=== PATIENT | female | born 1940 ===

== ENCOUNTER 2016-11-06 17:45 | Emergency (ER) | payer MEDICARE, BC ==
[2016-11-06] MEDS ORDERED: oxyCODONE 5 MG Tab ONE (18:10)
[2016-11-06] MEDS ORDERED: Ondansetron 4 MG Tab.DIS ONE ×3 (19:10→19:11)
[2016-11-06] MEDS ORDERED: Acetaminophen/HYDROcodone 325-5 MG Tab ONE (19:10)
--- NOTE | 2016-11-07 11:03 | EDM.PDOC ---
ED HPI GENERAL MEDICAL PROBLEM - General Chief Complaint: General Stated Complaint: FELL AT NOON TODAY - RIGHT KNEE SWELL AND PAIN Time Seen by Provider: 11/06/16 17:58 Source of Information: Reports: Patient, Family History Limitations: Reports: No Limitations - History of Present Illness INITIAL COMMENTS - FREE TEXT/NARRATIVE: This is a 76yo F with extreme pain of the right knee after falling in a boat. Patient states she hit her head as well and is on coumadin. Patient denies any loss of consciousness but has a headache and severe right knee pain. Patient does have some tenderness in other parts of the body from the fall but denies any of them noteworthy. Onset: Sudden Location: Reports: Head, Face, Lower Extremity, Right Severity: Severe Improves with: Reports: None Worsens with: Reports: Movement Associated Symptoms: Reports: No Other Symptoms - Related Data Allergies Allergy/AdvReac Type Severity Reaction Status Date / Time No Known Allergies Allergy Verified 11/06/16 18:08 Past Medical History HEENT History: Reports: Cataract, Impaired Vision Cardiovascular History: Reports: Afib, Heart Murmur, High Cholesterol, Hypertension, SOB on Exertion Gastrointestinal History: Reports: Chronic Diarrhea Genitourinary History: Reports: Urinary Incontinence Other Musculoskeletal History: right knee pain Immunologic History: Reports: Immunosuppression, Solid Organ Transplant - Past Surgical History HEENT Surgical History: Reports: Tonsillectomy Female Surgical History: Reports: Other (See Below) Other Female Surgeries/Procedures: Kidney transplant Musculoskeletal Surgical History: Reports: Knee Replacement Social & Family History - Family History Family Medical History: Noncontributory - Tobacco Use Smoking Status *Q: Never Smoker Second Hand Smoke Exposure: No - Caffeine Use Caffeine Use: Reports: Coffee, Tea - Recreational Drug Use Recreational Drug Use: No ED ROS GENERAL - Review of Systems Review Of Systems: ROS reveals no pertinent complaints other than HPI. ED EXAM, GENERAL - Physical Exam Exam: See Below Exam Limited By: No Limitations General Appearance: Severe Distress Eye Exam: Bilateral Eye: EOMI, PERRL Ears: Normal External Exam Nose: Normal Inspection Throat/Mouth: Normal Inspection Head: Facial Swelling, Other (bruising of the forehead b/l ) Neck: Normal Inspection Respiratory/Chest: No Respiratory Distress, Lungs Clear, Normal Breath Sounds Cardiovascular: Normal Peripheral Pulses, Regular Rate, Rhythm Peripheral Pulses: 2+: Dorsalis Pedis (L), Dorsalis Pedis (R) Back Exam: Normal Inspection, Full Range of Motion Extremities: Leg Pain, Other (slight swelling - patient has chronic swelling of both legs; right knee pain on touch all over 02/02) Psychiatric: Tearful Skin Exam: Ecchymosis Course - Vital Signs Last Recorded V/S: Last Vital Signs Temp 37.3 C 11/06/16 18:46 Pulse 74 11/06/16 18:46 Resp 16 11/06/16 18:46 BP 121/55 L 11/06/16 18:46 Pulse Ox 100 11/06/16 18:46 - Orders/Labs/Meds Orders: Active Orders 24 hr Category Date Time Status Head wo Cont [CT] Stat Exams 11/06/16 18:16 Taken Knee 1V or 2V Rt [CR] Stat Exams 11/06/16 18:16 Taken Meds: Medications Discontinued Medications Generic Name Dose Route Start Last Admin Trade Name Freq PRN Reason Stop Dose Admin Hydrocodone Bitart/Acetaminophen 10 tab 11/06/16 19:10 [place] 325-5 Mg .ROUTE 11/06/16 19:11 .STK-MED ONE Ondansetron HCl Confirm 11/06/16 19:11 Zofran Odt Administered 11/06/16 19:12 Dose 4 mg .ROUTE .STK-MED ONE Ondansetron HCl 4 mg 11/06/16 19:10 Zofran Odt .ROUTE 11/06/16 19:11 .STK-MED ONE Ondansetron HCl 8 mg 11/06/16 19:10 Zofran Odt .ROUTE 11/06/16 19:11 .STK-MED ONE Oxycodone HCl Confirm 11/06/16 18:10 11/06/16 18:35 Oxycodone Administered 11/06/16 18:11 10 mg Dose Administration 10 mg .ROUTE .STK-MED ONE Departure - Departure Time of Disposition: 19:00 Disposition: Home, Self-Care 01 Condition: Good Clinical Impression: Sprain and strain, Ecchymosis of right eye Bruise of face Qualifiers: Encounter type: initial encounter Qualified Code(s): S00.83XA - Contusion of other part of head, initial encounter Right knee injury Qualifiers: Encounter type: initial encounter Qualified Code(s): S89.91XA - Unspecified injury of right lower leg, initial encounter - Discharge Information Referrals: PCP,None [Primary Care Provider] - Forms: ED Department Discharge - Problem List Review Problem List Initiated/Reviewed/Updated: Yes - My Orders Last 24 Hours: My Active Orders 11/06/16 18:16 Head wo Cont [CT] Stat Knee 1V or 2V Rt [CR] Stat - Assessment/Plan Last 24 Hours: My Active Orders 11/06/16 18:16 Head wo Cont [CT] Stat Knee 1V or 2V Rt [CR] Stat Plan: Patient placed in immobilzer and this showed improvement in the pain with stabilization. Pain meds administered and did improve symptoms of pain. Patient counseled on negative CT head and right knee x-rays. Counseled on supportive therapy, ice, rest, elevation and use of immobilizer. Patient agrees with plan of care, rest and f/u if any further concerns in ER or clinic. Discussed f/u with regular PCP and ortho when they get home for further evaluation and patient / agree to follow up.
--- NOTE | 2016-11-08 10:40 | CT ---
DATE OF SERVICE: 11/06/16 CLINICAL DATA: fall UNENHANCED BRAIN CT Multislice acquisition through the brain without IV contrast was performed. No priors. There is diffuse cerebral atrophy. There are periventricular lucencies bilaterally consistent with small-vessel ischemic change. No masses or mass effect. No intracranial hemorrhage. No evidence of acute or subacute infarct. No bony abnormalities. IMPRESSION: No acute intracranial abnormalities. [id number] [facility]
--- NOTE | 2016-11-08 10:43 | CR ---
DATE OF SERVICE: 11/06/16 CLINICAL DATA: fall RIGHT KNEE The patient is status post right total knee arthroplasty. The prosthesis appears intact. No acute fracture or dislocation. No lytic or blastic bone lesions. [id number] [facility]
== END 2016-11-06 19:23 | disposition home or self-care (01) ==
LOC: LB.ED 17:45
DX: S05.11XA Contusion of eyeball and orbital tissues, right eye, initial encounter (principal); S00.83XA Contusion of other part of head, initial encounter; S89.91XA Unspecified injury of right lower leg, initial encounter; I48.91 Unspecified atrial fibrillation; E78.00 Pure hypercholesterolemia, unspecified; I10 Essential (primary) hypertension; Z96.659 Presence of unspecified artificial knee joint; Z94.0 Kidney transplant status; Z98.890 Other specified postprocedural states; W01.0XXA Fall on same level from slipping, tripping and stumbling without subsequent striking against object, initial encounter
CPT/HCPCS: 70450; 73560; 99284; A9270; 99283